=== PATIENT | female | born 1950 | race Caucasian/White ===

== ENCOUNTER → 2016-10-01 | Outpatient (CLI) | payer MEDICARE, OTHER ==
[~2016-10-01] MED LIST: ASPIRIN325 MG PO
== END ==
LOC: HEART 5 14:55
DX: R06.02 Shortness of breath (principal); F17.210 Nicotine dependence, cigarettes, uncomplicated; R94.2 Abnormal results of pulmonary function studies
CPT/HCPCS: 94060; 94729

== ENCOUNTER → 2020-12-24 | Outpatient (CLI) | payer MEDICARE ==
[~2020-12-24] MED LIST changes: +BREO ELLIPTA 21 EACH INH; +CLARITIN10 M2 PO; +HYDROCHLOROTHIA25 MG PO; +LISINOPRIL40 MG PO; +LORTAB 7.5-3251 EACH PO; +MINOXIDIL10 MG PO; +NEURONTIN300 MG PO; +PROPRANOLOL HCL20 MG PO; +VENTOLIN HFA 66.7 GM INH; +VISTARIL 25 MG25 MG PO; +VITAMIN D PO
== END ==
LOC: KOH-I 14:04
DX: F17.210 Nicotine dependence, cigarettes, uncomplicated (principal); I71.2 Thoracic aortic aneurysm, without rupture
CPT/HCPCS: 71271